=== PATIENT | female | born 1995 | race Caucasian/White ===

== ENCOUNTER 2019-03-07 01:38 | Emergency (ER) | payer OTHER ==
[~2019-03-07] VITALS: Ht 165.1 cm; Wt 61.4 kg
[~2019-03-07 01:38] MED LIST: IBUP-1542 PO
[2019-03-07 01:55] VITALS: Ht 165.1 cm; Wt 61.4 kg
[2019-03-07] MEDS ORDERED: BACITRACIN 0.5%/ZINC 28.35 GM OINT TOP ONE (02:30)
[2019-03-07 02:36] VITALS: BP 128/63; PULSE 78; RESP 19
== END 2019-03-07 02:39 | disposition home or self-care (01) ==
LOC: E/R 01:38
DX: S50.12XA Contusion of left forearm, initial encounter (principal); F10.920 Alcohol use, unspecified with intoxication, uncomplicated; W23.1XXA Caught, crushed, jammed, or pinched between stationary objects, initial encounter; Y92.410 Unspecified street and highway as the place of occurrence of the external cause
CPT/HCPCS: 99282